=== PATIENT | male | born 1985 | race Caucasian/White ===

== ENCOUNTER 2023-06-14 08:31 | Emergency (ER) | payer OTHER ==
[2023-06-14 08:56] VITALS: TEMP 98; O2SAT 99
--- NOTE | 2023-06-14 09:16 | ERPHSYRPT ---
- History of Present Illness Time Seen by Provider: 06/14/23 09:25 Source: patient Exam Limitations: no limitations Patient Subjective Stated Complaint: C/O left ankle injury 3 days ago. Patient indicates that a piece of pipe (plastic) fell on his outer ankle and caused an open place. Patient has had minimal pain and has been ambulating on it since that time but his pain is now a #10 out of #10 when he stands up and puts any weight on it. Current pain #0; only has pain when standing/ambulating. Triage Nursing Assessment: Patient ambulated back to ER; refused a W/C. He is walking on the toes of his left foot. He is alert and oriented. Gauze removed from left outer ankle. An irregular shaped abrasion/wound noted under gauze. It measures 2.3cm X 2.3cm; wound bed is moist and yellow. Edges of wound are red in color with a swollen, skin tone periwound. Pedal pulse present. Physician History: Patient is a 37-year-old male presents to our ED for evaluation of pain to the lateral aspect of his left ankle. Patient states the plastic pipe hit his left ankle 3 days ago. Patient has a 2.3 x 2.3 cm abrasion to the area of involvement. No limitations to range of motion. There are some localized swelling. Patient's has been applying topical antibiotic to the abrasion. There is some residual dried ointment on the wound. No cellulitis. Localized reactive tissue inflammation. No lymphangitis. No active drainage. No fever. Patient states his pain is worse when he puts his foot flat onto the ground. Therefore he tends to walk on his toes as this is the most comfortable for him. No other injuries reported. Patient states he is otherwise healthy. He voices no other complaints or concerns at this time. Portions of this note were created with voice recognition technology. There may be grammatical, spelling, punctuation or sound alike errors Method of Injury: direct blow Occurred: days ago (3 days ago) Quality: constant Severity of Pain-Max: moderate Severity of Pain-Current: mild Lower Extremities Pain: ankle: left Modifying Factors: Improves With: other (Walking on his toes left foot resolves the pain to his left ankle) Associated Symptoms: none Allergies/Adverse Reactions: No Known Drug Allergies Allergy (Verified 06/14/23 08:42) Home Medications: No Reportable Medications [No Reported Medications] 06/14/23 [History] Hx Tetanus, Diphtheria Vaccination/Date Given: No (Not tetnus) Hx Influenza Vaccination/Date Given: No Hx Pneumococcal Vaccination/Date Given: No Immunizations Up to Date: Yes Travel Risk - International Travel Have you traveled outside of the country in past 3 weeks: No - Coronavirus Screening Are you exhibiting any of the following symptoms?: No - Vaccine Status Have you recieved a Covid-19 vaccination: No - Review of Systems Constitutional: No Symptoms, No Fever, No Chills Eyes: No Symptoms Ears, Nose, & Throat: No Symptoms Respiratory: No Symptoms, No Cough, No Dyspnea Cardiac: No Symptoms, No Chest Pain, No Edema, No Syncope Abdominal/Gastrointestinal: No Symptoms, No Abdominal Pain, No Nausea, No Vomiting, No Diarrhea Genitourinary Symptoms: No Symptoms, No Dysuria Musculoskeletal: No Symptoms, No Back Pain, No Neck Pain Skin: No Symptoms, No Rash Neurological: No Symptoms, No Dizziness, No Focal Weakness, No Sensory Changes Psychological: No Symptoms Endocrine: No Symptoms Hematologic/Lymphatic: No Symptoms Immunological/Allergic: No Symptoms All Other Systems: Reviewed and Negative - Past Medical History Pertinent Past Medical History: Yes Musculoskeletal History: Fractures - Past Surgical History Past Surgical History: Yes Musculoskeletal: Orthopedic Surgery Other Surgical History: LEFT LOWER LEG SURGERY, LEFT WRIST SURGERY, - Social History Smoking Status: Never smoker Exposure to second hand smoke: No Drug Use: none Patient Lives Alone: No - Nursing Vital Signs Nursing Vital Signs: Initial Vital Signs Temperature 98 F 06/14/23 08:32 Pulse Rate 80 06/14/23 08:32 Respiratory Rate 18 06/14/23 08:32 Blood Pressure 117/97 06/14/23 08:32 O2 Sat by Pulse Oximetry 99 06/14/23 08:32 Pain Scale Pain Intensity 0 - Physical Exam General Appearance: no apparent distress, alert Eyes, Ears, Nose, Throat Exam: moist mucous membranes Neck Exam: non-tender, full range of motion Cardiovascular/Respiratory Exam: chest non-tender, normal breath sounds, regular rate/rhythm, heart sounds normal, no respiratory distress, No bradycardia, No tachycardia Gastrointestinal/Abdominal Exam: non-tender, soft Back Exam: normal inspection, No vertebral tenderness Hips Exam: bilateral: non-tender, normal inspection, normal range of motion, no evidence of injury Legs Exam: bilateral leg: non-tender, normal inspection, normal range of motion, no evidence of injury Knees Exam: bilateral knee: non-tender, normal inspection, normal range of motion, no evidence of injury Ankle Exam: right ankle: non-tender, normal inspection, normal range of motion, no evidence of injury, left ankle: pain, soft tissue tenderness, swelling, other (2.3 x 2.3 cm abrasion to lateral aspect of left ankle. The extremity is otherwise neurovascular intact distally. Compartments are soft. Cap refill less than 2 seconds.) Foot Exam: bilateral foot: non-tender, normal inspection, normal range of motion, no evidence of injury Neuro/Tendon Exam: normal sensation, normal motor functions Mental Status Exam: alert, oriented x 3, cooperative Skin Exam: normal color, warm, dry SpO2 Interpretation: normal SpO2: 99 O2 Delivery: Room Air - Course Nursing assessment & vital signs reviewed: Yes - Radiology Exams Ankle X-ray Interpretation: Interpreted by me (No fracture or dislocation) Ordered Tests: Active Orders 24 hr Category Date Time Status ANKLE (3 VIEWS) Stat Exams 06/14/23 08:43 Taken - Progress Progress: improved Progress Note: Patient is a 37-year-old male presents to our ED for evaluation of left ankle pain secondary to an injury 3 days ago. X-ray negative for fracture or dislocation. Patient declined pain medication. Patient declined crutches. Patient states he has poor balance on crutches due to a head injury some years ago. There is a 2.3 x 2.3 cm wound just posterior to the left lateral malleolus. There is localized reactive inflammation. There does not appear to be a cellulitis or active infection. They have been treating the wound with topical antibiotic as well as irrigating the wound with hydrogen peroxide. Patient declined crutches. Patient Clines pain medication. Patient states he just wanted to make sure that there was no fracture. Due to the level of pain and discomfort we will refer patient to orthopedic clinic for follow-up and monitoring of patient until resolution. Patient voices no other complaints or concerns at this time. Patient is aware that subtle fractures can be missed on x-ray. He understands the importance of follow-up especially if pain does not resolve as additional imaging may be indicated Portions of this note were created with voice recognition technology. There may be grammatical, spelling, punctuation or sound alike errors Complexity of problems addressed is low acute uncomplicated Complexity of data reviewed and analyzed is moderate. Dr. Genao independently reviewed the x-ray. No fracture dislocation observed. Findings confirmed on radiology report. Clinical correlation made between the observation of the x- ray and H&P. Patient's pain appears to be originating from soft tissue. No bony pathology observed Risk of complications and the risk morbidity/mortality of patient management is minimal. Dry dressing applied. Patient refused crutches. Patient refused pain medication. He will take oral analgesics as needed for pain control. Vital stable. Time spent to discharge patient is approximately 10 minutes. Plan of care established for shared decision making. No social determinants of health present to impede follow-up. Patient voices no other complaints or concerns at this time. Portions of this note were created with voice recognition technology. There may be grammatical, spelling, punctuation or sound alike errors 06/14/23 09:29 06/14/23 09:34 Counseled pt/family regarding: diagnosis, need for follow-up, rad results - Departure Departure Disposition: Home Clinical Impression: Ankle abrasion, Ankle pain Condition: Stable Critical Care Time: No Referrals: ADRIANNA LYNN NP [Primary Care Provider] - Follow up/PCP as directed Additional Instructions: Discharge/Care Plan AMIE COLLIER was seen on 06/14/23 in the Emergency Room. The patient was counseled regarding Diagnosis,Lab results, Imaging studies, need for follow up and when to return to the Emergency Room. Prescriptions given: Discharge Note I have spoken with the patient and/or caregivers. I have explained the patient's condition, diagnosis and treatment plan based on the information available to me at this time. I have answered the patient's and/or caregiver's questions and addressed any concerns. The patient and/or caregivers have as good understanding of the patient's diagnosis, condition and treatment plan as can be expected at this point. The vital signs have been stable. The patient's condition is stable and appropriate for discharge from the emergency department. The patient will pursue further outpatient evaluation with the primary care physician or other designated or consulting physician as outlined in the discharge instructions. The patient and/or caregivers are agreeable to this plan of care and follow-up instructions have been explained in detail. The patient an d/or caregivers have received these instruction. The patient/and or caregivers are aware that any significant change in condition or worsening of symptoms should prompt an immediate return to this or the closest emergency department or call 911. Outpatient Orders: Ortho Referral Time Frame: 1 Day, Facility: [facility], Location: ORTHO CLINIC
--- NOTE | 2023-06-14 09:30 | XRAY ---
CLINICAL HISTORY:Injury with pain COMPARISON:None TECHNIQUE:X-ray left ankle AP, lateral and oblique views. FINDINGS: Normal bone density. No fracture or bony abnormality was seen. Ankle joint space is preserved. Fat planes are intact. IMPRESSION: No acute osseous abnormality was noted. (Disclaimer: "A subtle bone abnormality or fracture may not be readily apparent on x-rays, thus clinical correlation and further imaging including follow-up CT, MRI, or follow-up x-rays are advised as needed"). Electronically Signed by: Abhilash Holley MD. (06/14/2023 08:29:18 APPLICATION CHEMIST)
[2023-06-14 09:42] VITALS: BP 120/90; PULSE 86; RESP 19
== END 2023-06-14 09:43 | disposition home or self-care (01) ==
LOC: ED 08:31
DX: S90.512A Abrasion, left ankle, initial encounter (principal); W20.8XXA Other cause of strike by thrown, projected or falling object, initial encounter; M25.572 Pain in left ankle and joints of left foot; Z28.310 Unvaccinated for COVID-19
CPT/HCPCS: 73610; 99283